=== PATIENT | female | born 1950 ===

== ENCOUNTER 2016-12-23 13:11 | Emergency (ER) | payer MEDICARE ==
[2016-12-23 13:28] VITALS: BP 136/80; PULSE 67; RESP 18; TEMP 98.2; O2SAT 99
[2016-12-23] MEDS ORDERED: Albuterol 0.083% Inhal Sol (2.5 mg/3 mL) UD INH STA (14:22)
--- NOTE | 2016-12-23 14:25 | ED PDOC ---
HPI: CCC, URI, Sore Throat Time Seen by Provider: 12/23/16 14:09 Chief Complaint (Nursing): Flu-like Symptoms Chief Complaint (Provider): Cough History Per: Patient History/Exam Limitations: no limitations Have you had recent travel within the past 21 days to any of the following countries: [place], [place], [place] or [place]?: No Onset/Duration Of Symptoms: Days (x1 month), Worse Since (last night) Current Symptoms Are (Timing): Still Present Associated Symptoms: Sputum (phlegm). denies: Fever, Chills Severity: Moderate Additional Complaint(s): Manjula Garcia is a 66 year old female, with a past medical history inclusive of HTN, who presents to the ED on 12/23/16 for the evaluation of a moderate cough, productive of phlegm, that she has experienced x1 month. Cough reportedly became acutely worse last night, at which time patient states she became short of breath secondary to an increased difficulty in clearing the phlegm from her throat and experienced some mild palpitations. Associated mild dizziness also reported in the ED, though patient denies fever or extremity pain/swelling. No recent surgery, long distance travel or hormone use. PMD: Asaf Pickens Past Medical History Reviewed: Historical Data, Nursing Documentation, Vital Signs Vital Signs: Last Vital Signs Temp 98.2 F 12/23/16 13:25 Pulse 67 12/23/16 13:25 Resp 18 12/23/16 13:25 BP 136/80 12/23/16 13:25 Pulse Ox 99 12/23/16 14:49 - Medical History PMH: HTN - Family History Family History: States: Unknown Family Hx - Living Arrangements Living Arrangements: With Family - Social History Current smoker - smoking cessation education provided: No Alcohol: None Drugs: Denies - Home Medications Home Medications: Ambulatory Orders Medication Instructions Recorded Albuterol HFA [Ventolin HFA 90 1 puff IH BID PRN #1 unit 12/23/16 mcg/actuation (8 g)] - Allergies Allergies/Adverse Reactions: Allergies Allergy/AdvReac Type Severity Reaction Status Date / Time Unobtainable Allergy Verified 12/23/16 13:25 Review of Systems Constitutional: Negative for: Fever Cardiovascular: Positive for: Palpitations (cough-associated). Negative for: Edema (no extremity swelling) Respiratory: Positive for: Cough, Shortness of Breath (cough-associated) Musculoskeletal: Negative for: Leg Pain Neurological: Positive for: Dizziness (mild, in ED) Physical Exam - Reviewed Nursing Documentation Reviewed: Yes Vital Signs Reviewed: Yes - Physical Exam Appears: Positive for: Non-toxic, No Acute Distress Head Exam: Positive for: ATRAUMATIC, NORMOCEPHALIC Skin: Positive for: Normal Color, Warm, Dry Eye Exam: Positive for: Normal appearance, PERRL ENT: Positive for: Normal ENT Inspection. Negative for: Pharyngeal Erythema, Tonsillar Exudate, Tonsillar Swelling Cardiovascular/Chest: Positive for: Regular Rate, Rhythm. Negative for: Edema, Murmur Respiratory: Positive for: Normal Breath Sounds. Negative for: Rales, Rhonchi, Wheezing, Respiratory Distress Extremity: Positive for: Normal ROM. Negative for: Swelling Neurologic/Psych: Positive for: Alert, Oriented - Laboratory Results Result Diagrams: 12/23/16 14:50 12/23/16 14:50 - ECG O2 Sat by Pulse Oximetry: 99 (RA) Pulse Ox Interpretation: Normal Medical Decision Making Medical Decision Makin:09 Initial Impression: cough Initial Plan: * CXR * Labs * Albuterol 0.083% 2.5mg INH * Peak Flow Pre/Post Treatment * Reevaluation Scribe Attestation: Documented by Mattie Lamar, acting as a scribe for Simran Nunes PA-C. Provider Scribe Attestation: All medical record entries made by the Scribe were at my direction and personally dictated by me. I have reviewed the chart and agree that the record accurately reflects my personal performance of the history, physical exam, medical decision making, and the department course for this patient. I have also personally directed, reviewed, and agree with the discharge instructions and disposition. Disposition - Clinical Impression Clinical Impression: Viral illness, Cough - Patient ED Disposition Is Patient to be Admitted: No Counseled Patient/Family Regarding: Diagnosis, Need For Followup, Rx Given - Disposition Referrals: [facility] [Outside] Disposition: Routine/Home Disposition Time: 15:53 Condition: GOOD Prescriptions: Albuterol HFA [Ventolin HFA 90 mcg/actuation (8 g)] 1 puff IH BID PRN #1 unit PRN Reason: Shortness Of Breath Instructions: Acute Cough (ED)
[2016-12-23] MEDS ORDERED: Albuterol 0.083% Inhal Sol (2.5 mg/3 mL) UD ONE (14:39)
[2016-12-23 15:00] LABS: BASO % 0.7 % (0.0-2.0); EOS # 0.1 K/uL (0.0-0.7); EOS % 2.3 % (0.0-4.0); HEMATOCRIT 40.4 % (34.0-47.0); LYMPH # 2.1 K/uL (1.0-4.3); LYMPH % 46.5 % (20.0-40.0); MEAN CELL VOLUME 90.9 fl (81.0-99.0); MEAN CORPUSCULAR HEMOGLOBIN 30.9 pg (27.0-31.0); MEAN PLATELET VOLUME 8.8 fl (7.2-11.7); MONO # 0.5 K/uL (0.0-0.8); MONO % 11.5 % (0.0-10.0); NEUT # 1.8 K/uL (1.8-7.0); NRBC % 0.1 % (0.0-0.0); RED CELL DISTRIBUTION WIDTH 13.2 % (11.5-14.5); WHITE BLOOD COUNT 4.6 K/uL (4.8-10.8)
[2016-12-23 15:09] LABS: ALB/GLOB RATIO 1.2 (1.0-2.1); ALKALINE PHOSPHATASE 80 U/L (38-126); ALT/SGPT 46 U/L (9-52); AST/SGOT 39 U/L (14-36); BILIRUBIN,TOTAL 0.7 mg/dl (0.2-1.3); BLOOD UREA NITROGEN 13 mg/dl (7-17); CALCIUM 9.2 mg/dL (8.4-10.2); CARBON DIOXIDE 25 mmol/L (22-30); CHLORIDE 107 mmol/L (98-107); GFR AFRICAN-AMERICAN > 60; GLUCOSE,RANDOM 96 mg/dL (65-105); POTASSIUM 4.7 MMOL/L (3.6-5.0); SODIUM 141 mmol/l (132-148); TOTAL PROTEIN 7.9 G/DL (6.3-8.2)
--- NOTE | 2016-12-23 16:23 | RAD ---
HISTORY: cough COMPARISON: No prior. TECHNIQUE: Chest PA and lateral FINDINGS: LUNGS: No active pulmonary disease. PLEURA: No significant pleural effusion identified. No pneumothorax apparent. CARDIOVASCULAR: No radiographic findings to suggest acute or significant cardiovascular disease. OSSEOUS STRUCTURES: No significant abnormalities. VISUALIZED UPPER ABDOMEN: Normal. OTHER FINDINGS: None. IMPRESSION: No active disease.
== END 2016-12-23 16:25 | disposition home or self-care (01) ==
LOC: H.ER 13:11
DX: B34.9 Viral infection, unspecified (principal); R05 Cough; I10 Essential (primary) hypertension; J02.9 Acute pharyngitis, unspecified

== ENCOUNTER 2017-06-09 06:33 | Observation (INO) | payer MEDICARE ==
[2017-06-09 07:03] VITALS: RESP 18
[2017-06-09] MEDS ORDERED: Iohexol 240 (50 ml) PO ONE (07:53)
--- NOTE | 2017-06-09 08:02 | ED PDOC ---
HPI: General Adult Time Seen by Provider: 06/09/17 06:45 Chief Complaint (Nursing): ENT Problem Chief Complaint (Provider): left throat pain History Per: Patient, Medical Center Representative (sean [id number] Ebony Nguyễn) History/Exam Limitations: language barrier (salvadorean ) Onset/Duration Of Symptoms: Days (x 2) Additional Complaint(s): Manjula Garcia is a 67 year old female, with a previous medical history of hypertension, who presents to the ED with complaints of left sided throat pain associated with left lower quadrant abdominal pain ongoing for 2 days. She denies any nausea, vomiting, diarrhea, fever, chills, urinary symptoms or ear pain. PMD: none provided Past Medical History Reviewed: Historical Data, Nursing Documentation, Vital Signs Vital Signs: Last Vital Signs Temp 97.8 F 06/09/17 14:00 Pulse 57 L 06/09/17 14:45 Resp 18 06/09/17 14:00 BP 115/62 06/09/17 14:00 Pulse Ox 98 06/09/17 14:45 - Medical History PMH: HTN - Surgical History Surgical History: No Surg Hx - Family History Family History: States: Unknown Family Hx - Social History Current smoker - smoking cessation education provided: No Alcohol: None Drugs: Denies - Home Medications Home Medications: Ambulatory Orders Medication Instructions Recorded Albuterol HFA [Ventolin HFA 90 1 puff IH BID PRN #1 unit 12/23/16 mcg/actuation (8 g)] Amoxicillin 500 mg PO BID #14 tablet 06/09/17 - Allergies Allergies/Adverse Reactions: Allergies Allergy/AdvReac Type Severity Reaction Status Date / Time pollen extracts Allergy ITCHING Verified 06/09/17 07:27 Review of Systems ROS Statement: Except As Marked, All Systems Reviewed And Found Negative Constitutional: Negative for: Fever, Chills ENT: Negative for: Ear Pain Gastrointestinal: Positive for: Abdominal Pain. Negative for: Nausea, Vomiting , Diarrhea Genitourinary Female: Negative for: Dysuria, Frequency, Incontinence, Hematuria Physical Exam - Reviewed Nursing Documentation Reviewed: Yes Vital Signs Reviewed: Yes - Physical Exam Appears: Positive for: Well, Non-toxic, No Acute Distress Head Exam: Positive for: ATRAUMATIC, NORMAL INSPECTION, NORMOCEPHALIC Skin: Positive for: Normal Color, Warm, Dry Eye Exam: Positive for: EOMI, Normal appearance, PERRL ENT: Positive for: Normal ENT Inspection. Negative for: Pharyngeal Erythema, Tonsillar Exudate, Tonsillar Swelling Neck: Positive for: Painless ROM, Supple. Negative for: Normal (left cirvical lymphadenopathy ) Cardiovascular/Chest: Positive for: Regular Rate, Rhythm Respiratory: Positive for: CNT, Normal Breath Sounds Gastrointestinal/Abdominal: Positive for: Bowel Sounds, Soft, Tenderness (LLQ) Back: Positive for: Normal Inspection Extremity: Positive for: Normal ROM Neurologic/Psych: Positive for: Alert, Oriented - Laboratory Results Result Diagrams: 06/09/17 07:59 06/09/17 07:59 - ECG ECG Rhythm: Positive for: Sinus Bradycardia. Negative for: ST/T Changes Rate: 57 (bpm) O2 Sat by Pulse Oximetry: 98 Pulse Ox Interpretation: Normal (r) Medical Decision Making Medical Decision Making: Initial Impression: abdominal pain. r/o diverticulitis throat pain r/o strep versus abscess or mass Initial Plan: * CT abd pelvis PO& IV contrast * EKG * lipase * troponin I * omnipaque 50 ml PO * rapid strep * ED observation * reevaluation Time: 1131 --CT ABD/Pelvis FINDINGS: LOWER THORAX: Unremarkable. LIVER: Mild hepatic steatosis is noted. GALLBLADDER AND BILE DUCTS: Unremarkable. PANCREAS: Unremarkable. No gross lesion or ductal dilatation. SPLEEN: Unremarkable. ADRENALS: Unremarkable. No mass. KIDNEYS AND URETERS: Unremarkable. No hydronephrosis. No solid mass. VASCULATURE: Unremarkable. No aortic aneurysm. BOWEL: Few scattered colonic diverticulosis are seen. No definite CT evidence of diverticulitis. No evidence of bowel obstruction. APPENDIX: Normal appendix. PERITONEUM: Unremarkable. No free fluid. No free air. LYMPH NODES: Unremarkable. No enlarged lymph nodes. BLADDER: Mild diffuse urinary bladder wall thickening. REPRODUCTIVE: The uterus is prominent in size demonstrate heterogeneous enhancement. BONES: No acute fracture. OTHER FINDINGS: None. IMPRESSION: Colonic diverticulosis without CT evidence of diverticulitis. Mild to moderate urinary bladder wall thickening suspicious for cystitis. Slightly prominent heterogeneous uterus may contains fibroids. If clinically warranted further assessment by ultrasound may be obtained. Mild hepatic steatosis. --CT neck ordered per findings on CT ABD/Pelvis Time: 1354 --CT neck FINDINGS: NASOPHARYNX: Normal in appearance. SUPRAHYOID NECK: Evaluation of the oral cavity is limited due to extensive dental amalgam artifacts. There is apparent isodense soft tissue in the left tonsillar fossa with effacement of the left parapharyngeal space (series 2, image 35). The oropharynx, right parapharyngeal space and retropharyngeal space are grossly normal in appearance. INFRAHYOID NECK: The larynx, hypopharynx, and supraglottic space are within normal limits. Vocal cords intact. GLANDS: Parotid and submandibular glands unremarkable. Normal size thyroid gland, without nodule. LYMPH NODES: Normal. No lymphadenopathy. CERVICAL SPINE: No fracture or focal lesion. There is mild degenerative disc disease at C5-6 and C6-7. No spinal canal stenosis. OTHER FINDINGS: The visualized lungs are clear. IMPRESSION: Examination is limited in the absence of intravenous contrast. Apparent asymmetric soft tissue in the left tonsillar fossa may represent acute tonsillitis however underlying mass cannot be entirely excluded. A dedicated CT scan with intravenous contrast is recommended for further evaluation. Time: 1430 --Upon provider reevaluation, patient is medically stable and requires no further treatment in the ED at this time. Patient will be discharged home with Rx for Amoxicillin 500mg. Counseling was provided and all questions were answered regarding diagnosis and need for follow up with referral for ENT doctor. There is agreement to discharge plan. Return if symptoms persist or worsen. Clinical Impression: Tonsillitis Scribe Attestation: Documented by Alta Galvin, acting as a scribe for Becca Block MD. Provider Scribe Attestation: All medical record entries made by the Scribe were at my direction and personally dictated by me. I have reviewed the chart and agree that the record accurately reflects my personal performance of the history, physical exam, medical decision making, and the department course for this patient. I have also personally directed, reviewed, and agree with the discharge instructions and disposition. ED OBSERVATION Date of observation admission: 06/09/17 Time of observation admission: 07:57 - Observation admission statement Patient is being placed in observation because:: extensive workup for LLQ abdominal pain and left sided throat pain. - Goals of Observation Goals of observation are:: results of workup and alleviation of symptoms Disposition - Clinical Impression Clinical Impression: Neck pain - Patient ED Disposition Is Patient to be Admitted: No Doctor Will See Patient In The: Office Counseled Patient/Family Regarding: Studies Performed, Diagnosis, Need For Followup, Rx Given - Disposition Disposition: Routine/Home Disposition Time: 14:30 Condition: IMPROVED
[2017-06-09 08:04] LABS: BASO % 0.4 % (0.0-2.0); EOS # 0.1 K/uL (0.0-0.7); EOS % 1.8 % (0.0-4.0); HEMATOCRIT 41.5 % (34.0-47.0); LYMPH # 2.6 K/uL (1.0-4.3); LYMPH % 50.7 % (20.0-40.0); MEAN CELL VOLUME 91.8 fl (81.0-99.0); MEAN CORPUSCULAR HEMOGLOBIN 31.4 pg (27.0-31.0); MEAN CORPUSCULAR HGB CONC 34.2 g/dL (33.0-37.0); MEAN PLATELET VOLUME 9.1 fl (7.2-11.7); MONO # 0.6 K/uL (0.0-0.8); MONO % 11.8 % (0.0-10.0); NEUT # 1.8 K/uL (1.8-7.0); NEUT % 35.3 % (50.0-75.0); NRBC % 0.1 % (0.0-0.0); RED CELL DISTRIBUTION WIDTH 12.9 % (11.5-14.5); WHITE BLOOD COUNT 5.2 K/uL (4.8-10.8)
[2017-06-09] MEDS ORDERED: Iohexol 240 (50 ml) ONE (08:06)
[2017-06-09 08:18] LABS: ALB/GLOB RATIO 1.3 (1.0-2.1); ALKALINE PHOSPHATASE 104 U/L (38-126); ALT/SGPT 43 U/L (9-52); AST/SGOT 37 U/L (14-36); BILIRUBIN,TOTAL 0.5 mg/dl (0.2-1.3); BLOOD UREA NITROGEN 15 mg/dl (7-17); CALCIUM 9.1 mg/dL (8.4-10.2); CARBON DIOXIDE 24 mmol/L (22-30); CHLORIDE 108 mmol/L (98-107); GFR AFRICAN-AMERICAN > 60; GLUCOSE,RANDOM 131 mg/dL (65-105); LIPASE 158 U/L (23-300); POTASSIUM 4.6 MMOL/L (3.6-5.0); SODIUM 142 mmol/l (132-148); TOTAL PROTEIN 7.3 G/DL (6.3-8.2)
[2017-06-09] MEDS ORDERED: Iohexol 300 100 ML IJ ONE (10:24)
[2017-06-09] MEDS ORDERED: Sodium Chloride 0.9% 50 ML IV ONE (10:24)
--- NOTE | 2017-06-09 11:33 | CT ---
PROCEDURE: CT Abdomen and Pelvis with contrast HISTORY: abdominal pain left lower quadrant COMPARISON: None. TECHNIQUE: Contrast dose: 95 mL Omnipaque 300. Axial and reformatted coronal and sagittal CT images of the abdomen and pelvis were obtained after IV and oral contrast administration. Radiation dose: Total exam DLP = 986.3 mGy-cm. This CT exam was performed using one or more of the following dose reduction techniques: Automated exposure control, adjustment of the mA and/or kV according to patient size, and/or use of iterative reconstruction technique. FINDINGS: LOWER THORAX: Unremarkable. LIVER: Mild hepatic steatosis is noted. GALLBLADDER AND BILE DUCTS: Unremarkable. PANCREAS: Unremarkable. No gross lesion or ductal dilatation. SPLEEN: Unremarkable. ADRENALS: Unremarkable. No mass. KIDNEYS AND URETERS: Unremarkable. No hydronephrosis. No solid mass. VASCULATURE: Unremarkable. No aortic aneurysm. BOWEL: Few scattered colonic diverticulosis are seen. No definite CT evidence of diverticulitis. No evidence of bowel obstruction. APPENDIX: Normal appendix. PERITONEUM: Unremarkable. No free fluid. No free air. LYMPH NODES: Unremarkable. No enlarged lymph nodes. BLADDER: Mild diffuse urinary bladder wall thickening. REPRODUCTIVE: The uterus is prominent in size demonstrate heterogeneous enhancement. BONES: No acute fracture. OTHER FINDINGS: None. IMPRESSION: Colonic diverticulosis without CT evidence of diverticulitis. Mild to moderate urinary bladder wall thickening suspicious for cystitis. Slightly prominent heterogeneous uterus may contains fibroids. If clinically warranted further assessment by ultrasound may be obtained. Mild hepatic steatosis.
[2017-06-09 13:26] LABS: RBC URINE 2 /hpf (0-3); URINE BILIRUBIN NEGATIVE (NEGATIVE); URINE BLOOD NEGATIVE (NEGATIVE); URINE COLOR STRAW (YELLOW); URINE GLUCOSE (UA) NEG (Normal); URINE KETONE NEGATIVE (NEGATIVE); URINE LEUKOCYTE ESTERASE NEG Leu/uL (Negative); URINE PROTEIN NEGATIVE (NEGATIVE); URINE UROBILINOGEN 0.2-1.0 mg/dL (0.2-1.0); WBC URINE < 1 /hpf (0-5)
--- NOTE | 2017-06-09 13:56 | CT ---
PROCEDURE: CT NECK WITHOUT CONTRAST HISTORY: Left neck pain COMPARISON: None. TECHNIQUE: CT of the neck without intravenous contrast. Coronal and sagittal reformats generated. Radiation dose: DLP 464.69 mGy-cm This CT exam was performed using one or more of the following dose reduction techniques: Automated exposure control, adjustment of the mA and/or kV according to patient size, and/or use of iterative reconstruction technique. FINDINGS: NASOPHARYNX: Normal in appearance. SUPRAHYOID NECK: Evaluation of the oral cavity is limited due to extensive dental amalgam artifacts. There is apparent isodense soft tissue in the left tonsillar fossa with effacement of the left parapharyngeal space (series 2, image 35). The oropharynx, right parapharyngeal space and retropharyngeal space are grossly normal in appearance. INFRAHYOID NECK: The larynx, hypopharynx, and supraglottic space are within normal limits. Vocal cords intact. GLANDS: Parotid and submandibular glands unremarkable. Normal size thyroid gland, without nodule. LYMPH NODES: Normal. No lymphadenopathy. CERVICAL SPINE: No fracture or focal lesion. There is mild degenerative disc disease at C5-6 and C6-7. No spinal canal stenosis. OTHER FINDINGS: The visualized lungs are clear. IMPRESSION: Examination is limited in the absence of intravenous contrast. Apparent asymmetric soft tissue in the left tonsillar fossa may represent acute tonsillitis however underlying mass cannot be entirely excluded. A dedicated CT scan with intravenous contrast is recommended for further evaluation.
[2017-06-09 14:26] VITALS: BP 115/62; TEMP 97.8
[2017-06-09 14:38] VITALS: PULSE 57; O2SAT 98
--- NOTE | 2017-06-11 11:43 | CARD ---
APPROVED REPORT EKG Measurement Heart [id number] ID [id number] <Conclusion> Sinus bradycardia Moderate voltage criteria for LVH, may be normal variant Borderline ECG
== END 2017-06-09 14:55 | disposition home or self-care (01) ==
LOC: H.ER 06:33 → H.EROBSV 07:57
PROVIDERS: ADMIT Emergency Medicine; ATTEND Emergency Medicine
DX: M54.2 Cervicalgia (principal); I10 Essential (primary) hypertension; R10.32 Left lower quadrant pain
CPT/HCPCS: 36415; 70490; 74177; 80053; 81003; 83690; 84484; 85025; 87070; 87086; 87430; 99281; G0378; Q9966; Q9967